=== PATIENT | male | born 1990 | race Asian ===

== ENCOUNTER 2017-10-10 19:40 | Emergency (ER) | payer OTHER ==
[~2017-10-10] VITALS: Ht 172.7 cm; Wt 71.5 kg
[2017-10-10 19:42] VITALS: BP 147/92
== END 2017-10-10 20:10 | disposition home or self-care (01) ==
LOC: ED 20:04
DX: Z20.1 Contact with and (suspected) exposure to tuberculosis (principal)
CPT/HCPCS: 99281